=== PATIENT | female | born 1975 | race Caucasian/White ===

== ENCOUNTER → 2021-10-28 11:33 | Outpatient (CLI) | payer BC, SELFPAY ==
--- NOTE | ~2021-10-28 | XR_ITS ---
XR foot LT min 3V DATE: 10/28/2021 12:12 INDICATION: Left foot pain TECHNIQUE: 4 views COMPARISON: None FINDINGS: Plantar calcaneal enthesopathy. There is mild osteoarthritis at the first metatarsophalangeal joint. No fracture, dislocation, periosteal reaction or bone destruction. IMPRESSION: Plantar calcaneal enthesopathy Mild osteophyte is at first metatarsophalangeal joint Reviewed, dictated and finalized at location A. EMENTERIE WORKER
== END ==
PROVIDERS: Visit Provider Internal Medicine
DX: M79.672 Pain in left foot (principal); M77.32 Calcaneal spur, left foot
CPT/HCPCS: 73630

== ENCOUNTER → 2022-05-13 10:16 | Outpatient (CLI) | payer BC, SELFPAY ==
--- NOTE | ~2022-05-13 | CT_ITS ---
EXAMINATION: CT abdomen w con INDICATION: Splenic lesion TECHNIQUE: Computed tomographic images of the abdomen and pelvis were obtained after the administrati on of 100 cc of Omnipaque 350 intravenous contrast. The dose-length product (DLP) was 341.04 mGy-cm. Automated exposure control and iterative reconstruction technique were employed. COMPARISON: None available FINDINGS: There is a 10 mm x 7 mm x 12 mm lesion in the upper pole of the spleen which measures just above fluid attenuation. No additional splenic lesion is identified. There are multiple cysts of the liver, the largest of which measures 4.3 cm in the left hepatic lobe. The lung bases are clear. The h eart size is normal. The pancreas, gallbladder, and adrenal glands are normal. The kidneys are unrema rkable. There are no pathologically enlarged abdominal lymph nodes. There is no free intraperitoneal gas or evidence of bowel obstruction. IMPRESSION: 1. Small lesion in the upper pole of the spleen likely reflecting a benign finding such as a cyst or lymphangioma in the absence of known malignancy. Correlation with any prior imaging is recommended. C onsider follow-up CT or MRI with contrast in six months. Reviewed, dictated and finalized at location B. IMPRESSION: 1. Small lesion in the upper pole of the spleen likely reflecting a benign find ing such as a cyst or lymphangioma in the absence of known malignancy. Correlat ion with any prior imaging is recommended. Consider follow-up CT or MRI with co ntrast in six months.
== END ==
PROVIDERS: PCP Internal Medicine; Visit Provider Internal Medicine
DX: D73.89 Other diseases of spleen (principal)
CPT/HCPCS: 74160; Q9967

== ENCOUNTER → 2022-09-03 12:15 | Outpatient (CLI) | payer BC, SELFPAY ==
--- NOTE | ~2022-09-03 | MR_ITS ---
EXAMINATION: MR abdomen wo/w con INDICATION: Other diseases of the spleen TECHNIQUE: Coronal SSFSE ARC, WATER:coronal LAVA-FLEX, Coronal 2D FIESTA FatSat, Axial SSFSE BH ARC, Axial 3D DualEcho BH, Axial SSFSE-IR, Axial DWI b=500, Axial 2D FIESTA FatSat, pre and dynamic postco ntrast Axial LAVA ARC, postcontrast Coronal In and Opposed phase LAVA FLEX COMPARISON: CT, 05/13/2022 CONTRAST: Multihance, 10 cc FINDINGS: There is an 8 mm lesion in the upper pole of the spleen which is T1 hypointense and T2 hype rintense. No enhancement is identified after contrast administration. Cysts of the liver measure up t o 4 cm in the left hepatic lobe. The pancreas, gallbladder, and adrenal glands are normal. The kidney s are unremarkable. There are no pathologically enlarged abdominal lymph nodes. No dilated loops of b owel are present. IMPRESSION: 1. 8 mm lesion in the upper pole of the spleen with apparent slight decrease in size and MRI features consistent with a benign finding. Reviewed, dictated and finalized at location A. R RELATIONS ASSOCIATE
== END ==
PROVIDERS: PCP Internal Medicine; Visit Provider Internal Medicine
DX: D73.89 Other diseases of spleen (principal)
CPT/HCPCS: 74183; A9577

== ENCOUNTER 2023-07-19 01:02 | Day surgery (SDC) | payer BC, SELFPAY ==
[2023-07-12 10:35] VITALS: BMI 28.9
--- NOTE | 2023-07-16 16:50 | PM.HPGS ---
History of Present Illness History of Present Illness Consent: Risks, benefits, and alternatives have been discussed and questions answered. Patient agrees to proceed with procedure. Chief complaint: neoplasm screening Narrative: Sarah Wolf is a 47 year old female Referred for colon cancer screening. Review of Systems Review of Systems: All systems reviewed & are unremarkable except as noted in HPI and below [facility] Social History Social History Smoking status: Never smoker Alcohol intake: current Alcohol use details: Rarely Substance use type: does not use Living arrangements: other Additional living arrangements comments: With sp Meds Home Medications and Allergies Home Medications Medication Instructions Recorded Confirmed Type L norgest/E estradiol-E estrad 1 tablet PO DAILY 07/12/23 07/19/23 History 0.15 mg-30 mcg (84)/10 mcg(7) tabs,3mos (Simpesse) rosuvastatin 10 mg tablet 10 mg PO DAILY 07/12/23 07/19/23 History Allergies Allergy/AdvReac Type Severity Reaction Status Date / Time gadobenic acid Allergy Severe Hives Verified 07/19/23 07:05 [From Multihance] Exam Resp: Auscultation: clear to auscultation bilaterally Cardio: Rate: regular rate Rhythm: regular rhythm GI: GI Palp: Yes Soft to palpation and No Tenderness to palpation present (GI) Assessment and Plan Assessment and plan (1) Colon cancer screening: Code(s): Z12.11 - Encounter for screening for malignant neoplasm of colon Status: Acute Assessment and Plan: Colonoscopy with possible biopsy or polypectomy or cautery or injection of substances.
[2023-07-19 07:06] VITALS: BMI 29.5
[2023-07-19 07:14] VITALS: BP 112/88; PULSE 96; RESP 18; TEMP 36.6; O2SAT 100
[2023-07-19] MEDS: LACTATED RINGERS 1,000 ML 150 ML IV CONT (07:25)
--- NOTE | 2023-07-19 07:28 | P.PNAN_ITS ---
Anes - Initial Pre Proc Eval Procedure: Operation Date: 07/19/23 08:00 Proposed Procedures p Screening Colonoscopy - Nahun Abdalla MD Date/Time: 07/19/23 07:28 Surgeon: Nahun Abdalla MD Pre Op Diagnosis: neoplasm screening Patient Data Age: 47 Gender: F Height: 1.73 m Weight: 88 kg Last Vital Signs Temp 97.9 F 07/19/23 07:14 Pulse 96 07/19/23 07:14 Resp 18 07/19/23 07:14 BP 112/88 07/19/23 07:14 Pulse Ox 100 07/19/23 07:14 O2 Del Method Room Air 07/19/23 07:14 Allergies Allergy/AdvReac Type Severity Reaction Status Date / Time gadobenic acid Allergy Severe Hives Verified 07/19/23 07:05 [facility] Home Medications Medication Instructions Recorded Confirmed Type L norgest/E estradiol-E estrad 1 tablet PO DAILY 07/12/23 07/19/23 History 0.15 mg-30 mcg (84)/10 mcg(7) tabs,3mos (Simpesse) rosuvastatin 10 mg tablet 10 mg PO DAILY 07/12/23 07/19/23 History Patient hx anesthesia problems: none Family hx anesthesia problems: none Results Review: All pre-operative results and documents have been reviewed as part of the pre- operative evaluation. [facility] Social History Social History Smoking status: Never smoker Alcohol intake: current Alcohol use details: Rarely Substance use type: does not use Living arrangements: other Additional living arrangements comments: With sp Anes - Eval Final PreProcedure Day of Procedure 07/19/23 07:28 Patient weight: normal Heart: regular rate and rhythm Lungs: clear to auscultation Airway: Mallampati scale class II Neurological: alert and oriented Last oral intake: >/= 8 hours ASA classification: II Emergent: no Anesthetic plan: proceed Anesthesia type and monitoring: general GIVS and standard monitoring Results Review: All pre-operative results and documents have been reviewed as part of the pre-operative evaluation. Informed Consent: The patient's anesthetic plan and its attendant risks and benefits were discussed with the patient/family/POA. Questions were solicited and answers provided to the satisfaction of the patient/family/POA.
[2023-07-19] MEDS: SIMETHICONE ORAL SUSPENSION 20 MG/0.3 ML 30 ML BOTTLE 0.6 ML IRRIGATION (08:03)
[2023-07-19 08:13] VITALS: BP 103/62; PULSE 85; RESP 22; O2SAT 97
[2023-07-19 08:23] VITALS: BP 109/71; PULSE 83; RESP 28; O2SAT 100
[2023-07-19 08:33] VITALS: BP 122/74; PULSE 77; RESP 19; O2SAT 100
== END 2023-07-19 08:36 | disposition home or self-care (01) ==
PROVIDERS: PCP Internal Medicine; Visit Provider Internal Medicine Gastroenterology
PROC: 0DJD8ZZ Inspection of Lower Intestinal Tract, Via Natural or Artificial Opening Endoscopic (ICD-10-PCS; CPT 45378; principal; 2023-07-19 08:00)
DX: Z12.11 Encounter for screening for malignant neoplasm of colon (principal); K64.8 Other hemorrhoids
CPT/HCPCS: 45378; J2001; J2704; J7120

== ENCOUNTER 2023-10-10 10:01 | Emergency (ER) | payer BC, SELFPAY ==
--- NOTE | 2023-10-10 10:09 | ED.URI ---
HPI - URI/Sore Throat General Chief Complaint: Upper Respiratory Infection Stated Complaint: cough,congestion Time Seen by Provider: 10/10/23 10:10 Source: patient Mode of arrival: ambulatory Limitations: no limitations History of Present Illness HPI Narrative: Patient is a 40-year-old female who presents with 2 days of cough and congestion. Patient hysterectomy 08/24 and sinus infection mid August. Patient states since then she has had congestion and drainage. Cough developed yesterday on with a tickle in throat. Patient is taking Mucinex and NyQuil yesterday. Denies fever, chills, nausea, vomiting, diarrhea Related Data Home Medications Medication Instructions Recorded Confirmed rosuvastatin 10 mg tablet 10 mg PO DAILY 07/12/23 10/10/23 Allergies Allergy/AdvReac Type Severity Reaction Status Date / Time gadobenic acid Allergy Severe Hives Verified 10/10/23 10:15 [From Multihance] Review of Systems Review of Systems: All systems reviewed & are unremarkable except as noted in HPI and below Constitutional: Constitutional: Denies body ache(s), Denies chills, Denies fatigue, Denies fever(s), Denies headache(s), Denies malaise and Denies weakness Eyes: Eyes: Denies blurry vision, Denies itchy eyes and Denies loss of vision ENT: Denies otalgia, Denies headache(s), Reports nasal congestion, Denies sinus pain and Denies sore throat Cardiovascular: Cardiovascular: Denies chest pain, Denies irregular heart rhythm and Denies dyspnea Respiratory: Respiratory: Reports cough and Denies dyspnea Gastrointestinal: Gastrointestinal: Denies abdominal pain, Denies diarrhea, Denies nausea and Denies vomiting Musculoskeletal: Musculoskeletal: Denies back pain, Denies myalgias and Denies arthralgias Integumentary/Breasts: Skin/Breast: Denies pruritus and Denies rash Neurologic: Denies headache(s), Denies loss of vision and Denies weakness Psychiatric: Psychiatric: Reports no additional psychiatric complaints Endocrine: Endocrine: Denies fatigue Allergic/Immunologic: Allergic/Immunologic: Denies itchy eyes PMFSH Social History Social History Smoking status: Never smoker Alcohol intake: current Alcohol use details: Rarely Substance use type: does not use Living arrangements: other Additional living arrangements comments: With sp Comments At time of signature, agree with nursing past medical, surgical, social and family history. There is no relevant family history pertinent to the presenting complaint. Exam Const: General: cooperative, healthy appearing, comfortable, no acute distress and well nourished Nutritional Appearance: well nourished Orientation/consciousness: patient oriented x3 Limitations: no limitations HENMT: Head: normal to inspection, normocephalic and atraumatic Ears: hearing grossly normal bilaterally, external ears normal, TM's normal bilaterally, EAC's normal and no periauricular adenopathy Face/Nose/Sinus: Normal external nose present, Abnormal mucous membranes and turbinates present erythematous bilateral and diffuse, normal facial exam, sinuses nontender and face symmetric Face and sinus: normal facial exam, sinuses nontender and face symmetric Mouth: Yes Normal oral and palatal mucosa present, Yes lip normal, Yes tongue normal, Yes Normal salivary glands and ducts present, Yes oropharynx normal and Yes moist mucous membranes Teeth and gingiva: dentition normal Throat: posterior oropharynx normal, tonsils normal and uvula midline Eyes: General: appearance normal, both eyes and all related structures Alignment and Position: alignment normal and position normal Periorbital: periorbital findings normal Eyelids: eyelids normal Pupils: Equal, round and reactive pupils present Neck: Neck: normal visual inspection, full ROM, no lymphadenopathy and supple Chest: Chest palpation & inspection: normal inspection of the chest and nor
[2023-10-10 10:14] VITALS: BP 134/88; PULSE 112; RESP 18; TEMP 37.5; O2SAT 99
[2023-10-10 10:15] VITALS: BP 134/88; PULSE 112; RESP 18; TEMP 37.5; O2SAT 99
== END 2023-10-10 10:28 | disposition home or self-care (01) ==
PROVIDERS: Emergency Provider Nurse Practitioner Family; PCP Internal Medicine
DX: J06.9 Acute upper respiratory infection, unspecified (principal); E78.00 Pure hypercholesterolemia, unspecified
CPT/HCPCS: 99213; G0463